=== PATIENT | male | born 1975 | race Caucasian/White ===

== ENCOUNTER 2016-10-05 22:23 | Emergency (ER) | payer OTHER ==
--- NOTE | ~2016-10-05 | CR173 ---
[facility] A Service of [facility] RADIOLOGY TEXT RESULTS PATIENT: DEWAYNE AYOUB LOCATION: [facility] : 71 UNIT #: [id number] AGE: [address]: Hardy Reynoso DO SEX: M ORDER DR: [id number] [facility] [address] [place], [place] [address] [id number] E MR#: [id number] Acc #: [id number] NAME: DEWAYNE AYOUB : 1975 SEX: M STUDY DATE/TIME: 10/05/2016 22:44 UNIT: [facility] ROOM: STUDY DESCRIPTION: CR Knee 3 Views Rt Attending Physician: Hardy Reynoso D.O. Ordering Physician: Ed Jean Carlos Amor M.D. Primary Care Physician: No Primary Care Physician MEDICAL IMAGING REPORT This report is preliminary unless electronic signature is present EXAM Right knee 10/05 at 22:44 INDICATIONS Knee pain and soreness after falling off a broken step today. Pain with ambulation. FINDINGS 3 views of the right knee were obtained. No comparison. No fracture or malalignment is seen. There is no joint effusion. There is patellofemoral osteoarthritis. IMPRESSION Patellofemoral osteoarthritis. No acute findings in the knee. Dictated by... Estuardo Partida Jr., M.D. THIS IS AN ELECTRONICALLY VERIFIED REPORT Estuardo Partida Jr., M.D. at 10/06/2016 5:47 AM IZABELA/[email or web address] TD: 10/06/2016 05:41 JOB #: [id number] MEDICAL IMAGING REPORT Page 1 of 1 COPY
== END 2016-10-06 10:49 | disposition home or self-care (01) ==
LOC: CED 22:23
DX: S86.911A Strain of unspecified muscle(s) and tendon(s) at lower leg level, right leg, initial encounter (principal); I10 Essential (primary) hypertension; E78.5 Hyperlipidemia, unspecified; E11.9 Type 2 diabetes mellitus without complications; Z88.5 Allergy status to narcotic agent; Z79.899 Other long term (current) drug therapy; Z79.84 Long term (current) use of oral hypoglycemic drugs; X58.XXXA Exposure to other specified factors, initial encounter; Y93.89 Activity, other specified; Y92.69 Other specified industrial and construction area as the place of occurrence of the external cause; Y99.0 Civilian activity done for income or pay
CPT/HCPCS: 73562; 99283